=== PATIENT | female | born 1960 | race Caucasian/White ===

== ENCOUNTER → 2022-05-04 | Outpatient (CLI) | payer OTHER, BC, SELFPAY ==
--- NOTE | 2022-05-04 | CYSPIN_PTH ---
PATIENT: DINORAH MANJARREZ LOC: [facility] U#:[id number] AGE/SX: 61/F ROOM: RE05/04/[address]: Dr. Rakel Downey MD : 1960 BED: DIS: 05/04/2022 SPEC #: [id number] RECD: 05/04/22 15:00 STATUS: JAY RAMOS #: [id number] CLAUDIA: 05/04/22 00:[address]: Rakel Downey DEPT: CYTOLOGY RECD BY: Cheryl Pitts Tissues: Urine Procedures: Pap Stain (control) Special Stain Group II Cytospin Fluid HEADER OPERATION: Not noted PRE-OP DIAGNOSIS: Gross hematuria TISSUE SUBMITTED: Urine for cytology DIAGNOSIS CYTOLOGY Urine for cytology (cytospin and cell block): Atypical epithelioid cells present. See comment. AM:monserrat 05/06/2022 COMMENT Paucity of cellular material precludes evaluation of origin of these atypical cells. Clinical correlation is necessary. Immunohistochemistry ([id number]) contains scant cellular maaterial and is non-contributory. Case has been reviewed in consultation with Dr. Bills who concurs with the above diagnosis. IDC:[facility] CYTOLOGY STUDY Slides are reviewed. CYTOLOGY GROSS Received is 35 ml of dark yellow cloudy fluid labeled with the patient's name and and designated per the requisition as urine. Submitted for cytology and cell block preparation. / monserrat 05/05/2022 TC:? CPT: 88878, 61055
--- NOTE | 2022-05-04 | IMM_PTH ---
PATIENT: DINORAH MANJARREZ LOC: [facility] U#:[id number] AGE/SX: 61/F ROOM: RE05/04/[address]: Dr. Rakel Downey MD : 1960 BED: DIS: 05/04/2022 SPEC #: [id number] RECD: 05/06/22 13:41 STATUS: JAY REQ #: [id number] CLAUDIA: 05/04/22 00:[address]: Rakel Downey DEPT: IMMUNOHISTOCHEMISTRY RECD BY: Sapphire Decker Tissues: Urine Procedures: CK8 (initial) CK20 (add) CK7 (add) 34BE12 (add) PHYSICIAN & INSTITUTION [place] [id number] SPECIMEN INFORMATION: Tissue Source: Urine Clinical Info: Gross hematuria Specimen Number: [id number] CPT code: 91388, 84562 x3 METHODOLOGY: Deparaffinized sections of prefer/formalin-fixed tissue or PAP/DQ stained slides are incubated with monoclonal/polyclonal antibodies/oligonucleotide probes. Localization is made via biotin free immunoperoxidase method. Appropriate controls are performed and reacted as expected. Results on target cell population are indicated in the following table: RESULTS: ANTIBODY / CLONE RESULT CK8 (52pbwdO74) negative CK7 (OV-TL12/30) negative CK20 (KS20.8) negative 34BE12 (34BE12) negative These tests were developed and their performance characteristics determined by [facility]. They may not have been cleared or approved by the U.S. Food and Drug Administration. The FDA has determined that such clearance or approval is not necessary. The above immunohistochemical/dualISH markers are ordered and reviewed by the Pathologist. INTERPRETATION: Urine (cell block): Noncontributory. See comment. AM:monserrat 05/07/2022 Comment: Diagnostic cells are not present on slides examined.
[2022-05-04 17:39] LABS: Cytology, Body Fluid / CSF SEE PATHOLOGY REPORT
== END | disposition home or self-care (01) ==
PROVIDERS: Visit Provider Urology
DX: R31.0 Gross hematuria (principal)
CPT/HCPCS: 88108; 88313; 88341; 88342

== ENCOUNTER → 2022-05-06 | Outpatient (CLI) | payer OTHER, BC, SELFPAY ==
--- NOTE | 2022-05-06 16:31 | CT_ITS ---
STUDY: CT ABDOMEN AND PELVIS WITH AND WITHOUT CONTRAST REASON FOR EXAM: Female, 61 years old. GROSS HEMATURIA RADIATION DOSAGE (If Supplied By Facility): CTDIvol = ( 24.42 ) mGy, DLP = ( 4968.35 ) mGycm TECHNIQUE: Transaxial images were obtained from the dome of the diaphragm to the symphysis pubis without oral contrast. IV 100mL Isovue-300 was administered. Sagittal and coronal images were reconstructed. Individualized dose optimization techniques were used for this CT. COMPARISON: None. FINDINGS: The visualized lung bases are unremarkable. The visualized portions of the heart are within normal limits. Normal liver. There are surgical clips in the gallbladder fossa consistent with a prior cholecystectomy. Normal spleen. Normal pancreas. Normal bilateral adrenal glands. Bilateral small nonobstructing renal stones. No hydronephrosis, ureteral stone, ureteral dilatation. 2 cm exophytic cyst of the midsection of right kidney. Normal visualized stomach. Normal small intestine. Normal colon. The appendix is visualized and appears normal. Normal abdominal aorta. Normal inferior vena cava. Normal retroperitoneum. Normal urinary bladder. There is a small umbilical hernia containing fat. Status post bilateral hip arthroplasty which produces streak artifact and obscures the pelvis. CT/CT Abd/Pelvis W/WO Contrast IMPRESSION: Bilateral small nonobstructing renal stones. Electronically Signed: Wil Maradiaga MD at 8:25 EST ,
[2022-05-06 16:55] LABS: CREATININE FINGERSTICK < 0.9 mg/dL (0.55-1.02); EGFR FINGERSTICK > 60.0000 mL/min (>60)
== END | disposition home or self-care (01) ==
PROVIDERS: Referring Provider Urology; Visit Provider Urology
DX: R31.0 Gross hematuria (principal); R93.9 Diagnostic imaging inconclusive due to excess body fat of patient; R39.0 Extravasation of urine
CPT/HCPCS: 74178; Q9967

== ENCOUNTER 2022-06-03 10:03 | Day surgery (SDC) | payer BC, SELFPAY ==
[2022-06-03] MEDS: Lactated Ringers 1,000 ML 15 ML IV (10:20)
[2022-06-03 10:38] VITALS: BP 149/79; PULSE 75; RESP 16; TEMP 36.6; O2SAT 95; BMI 32.8
[2022-06-03] MEDS: Cefazolin 2 GM in 0.9% Normal Saline 100 ML IV (11:15)
--- NOTE | 2022-06-03 11:35 | PCM.OPRPT ---
Report of Operation Date of Procedure: 06/03/22 Pre-Operative Diagnosis: right ureteral calculus with hematuria Post-Operative Diagnosis: same Surgery/Procedure Performed:: cystoscopy with right retrograde pyelogram, right ureteroscopy, holmium laser lithotripsy, stone basket extraction, right ureteral stent insertion Surgeon: Rakel Downey Type of Anesthesia: General Specimen's removed: stone fragments Description of Procedure: The patient is a 61-year-old female with gross hematuria who was found to have a distal right ureteral calculus on cystoscopy. Informed consent was obtained and she agreed to proceed with laser lithotripsy. She was taken to the operating room and placed on the operating room table. Anesthesia monitored the head, neck, airway, IV access and vital signs throughout the case. Once anesthesia was appropriate administered, the patient was placed into dorsal lithotomy position was prepped and draped in usual sterile fashion. Cystoscope was inserted through the urethra under direct visualization into the urinary bladder. Immediately identifiable was a extremely edematous right ureteral orifice. The actual orifice was an identifiable at first. Several attempts to find the orifice were made using an 8 Lebanese cone-tip catheter and contrast. With multiple attempts at passage of a Glidewire, the patient was given methylene blue, and the actual orifice was identified in the middle of the amount of edematous tissue. With difficulty, a 0.025 Glidewire was eventually able to pass alongside the stone and was advanced into the renal pelvis. The cystoscope was then used to place a 0.035 Glidewire alongside the first one. At this time the semirigid ureteroscope was utilized and a large ureteral calculus approximately 1 cm in size was directly visualized in conjunction with the stone as seen on fluoroscopy. Using a 270 ?m laser fiber, the stone and the larger one behind it were both lasered into multiple small fragments. These fragments were then removed using a stone basket. Multiple passes were made until the stones were both removed. At this time, using the 0.035 Glidewire, a 6 Lebanese 28 cm JJ stent was placed over the wire with good positioning in the renal pelvis as well as the urinary bladder. Multiple small stone fragments were then irrigated from her bladder. The fragments were sent for analysis. The patient was awakened and taken to the recovery room in good condition. There were no complications during this procedure. Grafts/Implants Used: 6x28cm JJ stent Complications none Admit VTE Documentation VTE Present on Admission: Yes VTE Mechan Device Prophylaxis: SCD's VTE Pharm Prophylaxis ordered?: No Reason prophylaxis not ordered:: Treatment Not Indicated
--- NOTE | 2022-06-03 11:36 | DCINST_ITS ---
Discharge Instructions Diet Discharge Diet: No restrictions Activity Discharge Activity: Return to Normal Activity May resume sexual activity in: No Restrictions Dressing / Incision Call your doctor if you observe: Fever of 101 or Higher, Inability to urinate and Inability to have a bowel movement Follow Up Care Please Follow Up With: Rakel Downey MD When: call office for appt Test Results: Test results from this visit will be discussed in further detail at your follow- up appointment, if applicable. Discharge Plan Admission Attending Provider: Rakel Downey Primary Care Provider: Care PhysicianSelena Primary Discharge Orders/Prescriptions Prescriptions: New phenazopyridine [Pyridium] 200 mg tablet 200 mg PO TID PRN PRN (Reason: Bladder Spasms) 7 Days Qty: 30 0RF cephalexin [cephalexin] 500 mg capsule 500 mg PO Q12 3 Days Qty: 6 0RF oxycodone-acetaminophen [Percocet] 5-325 mg tablet 1 tab PO Q8H PRN (Reason: pain) 4 Days Qty: 12 0RF Continued naproxen sodium [Aleve] 220 mg Tablet 220 mg PO Q12H PRN (Reason: Pain) Referrals / Follow Up: Care Physician,Selena Primary [Primary Care Provider] - Disposition Disposition (needs filled in before D/C Order can be placed): Home, Self Care
[2022-06-03 14:07] VITALS: BP 119/47; BP 149/79; PULSE 82; RESP 16; TEMP 36; O2SAT 100
[2022-06-03 14:15] VITALS: BP 112/67; BP 149/79; PULSE 75; RESP 16; O2SAT 100
[2022-06-03 14:29] VITALS: BP 110/48; BP 149/79; PULSE 73; RESP 16; TEMP 36.1; O2SAT 100
[2022-06-03 14:55] VITALS: BP 149/79
== END 2022-06-03 14:57 | disposition home or self-care (01) ==
LOC: SDC 10:06 → AC 10:06
PROVIDERS: Referring Provider Urology; Visit Provider Urology
PROC: 0TJ98ZZ Inspection of Ureter, Via Natural or Artificial Opening Endoscopic (ICD-10-PCS; CPT 52352; principal; 2022-06-03 11:15)
DX: N20.2 Calculus of kidney with calculus of ureter (principal); M06.9 Rheumatoid arthritis, unspecified; R39.15 Urgency of urination; R31.0 Gross hematuria; R35.1 Nocturia; Z78.0 Asymptomatic menopausal state; Z96.643 Presence of artificial hip joint, bilateral
CPT/HCPCS: 52356; 00918; 76000; 82360; J7120; C1769; J2405; Q9968

== ENCOUNTER → 2022-07-16 | Outpatient (CLI) | payer BC, SELFPAY ==
[2022-07-16 18:27] LABS: Calcium,Total 9.3 mg/dL (8.5-10.1)
== END | disposition home or self-care (01) ==
LOC: MTLAB 15:17
PROVIDERS: Referring Provider Urology; Visit Provider Urology
DX: N20.0 Calculus of kidney (principal)
CPT/HCPCS: 36415; 82310